=== PATIENT | male | born 1975 | race Caucasian/White ===

== ENCOUNTER → 2018-12-04 | Day surgery (SDC) | payer BC ==
[~2018-12-04] MED LIST: Dexamethasone 20 MG/5 ML VIAL ONE; Lidocaine 1% PF 5 ML VIAL ONE; Ondansetron PF 4 MG/2 ML Vial ONE; PROPOFOL 200 MG/20 ML VIAL ONE; Succinylcholine Chloride 20 MG/ML 10 ml SYRINGE FS ONE
--- NOTE | 2018-12-05 01:55 | OP ---
DATE OF PROCEDURE: 12/04/2018 ENGRAVED ROLLER INSPECTOR SURGEON: None. PROCEDURE PERFORMED: Esophagogastroduodenoscopy with foreign body removal and esophageal biopsies. INDICATIONS: 1. Esophageal foreign body. 2. Chronic dysphagia. MEDICATIONS: See anesthesia record. FINDINGS: After discussion of the risks, benefits, and alternatives of the procedure, informed consent was obtained and witnessed. Pre-endoscopic cardiopulmonary examination was satisfactory. Time-out was performed before sedation was achieved. Sedation was achieved with Anesthesia assistance in the endoscopy unit. The patient was endotracheally intubated for airway protection. He was placed in the left lateral decubitus position. A Pentax adult upper endoscope was placed into the oropharynx and passed through the cricopharyngeus under direct visualization. The esophageal mucosa had an appearance of diffuse edema, friability, longitudinal furrows and concentric rings, all highly suspicious for eosinophilic esophagitis. In the distal esophagus, at 30 cm from the incisors, there was a large food bolus impaction. This appeared to be chicken. The food bolus did not proceed distally with air insufflation. Therefore, I used a Short Net. Thankfully, the large chunk of chicken was easily removed in 2 large pieces with the Short Net. The esophagus was then reintubated for inspection. There was severe maceration in the distal esophagus secondary to recent foreign body impaction. There was no discrete stricture visualized, but there was a lot of diffuse edema in the area. I obtained biopsies from the midesophagus to evaluate for possible eosinophilic esophagitis. I did not perform any esophageal dilation. The endoscope was passed beyond the GE junction, which was at 39 cm from the incisors, and into the stomach. There was some food matter within the gastric fundus obscuring view of a small portion of the fundus, but otherwise the entire gastric mucosa visualized appeared normal. The endoscope was passed through the pylorus and into the first and second portions of the duodenum, which also appeared normal. The upper endoscope was completely withdrawn and the patient allowed to recover. The patient tolerated the procedure well. There were no immediate postprocedure complications. IMPRESSION: 1. Food bolus impaction (chicken) in the distal esophagus, completely removed with Short Net. 2. Severe maceration in the distal esophagus, secondary to recent food bolus impaction. 3. Diffuse esophageal edema, friability, longitudinal furrows and concentric rings, all highly suspicious for eosinophilic esophagitis. Mid esophageal biopsies obtained. RECOMMENDATIONS: 1. Twice daily oral proton pump inhibitor. 2. Liquid diet today and tomorrow, then he can slowly advance as tolerated. 3. Chew food thoroughly. 4. Follow up pathology on the esophageal biopsies. 5. Follow up in the GI Clinic in the next 3 to 4 weeks. Depending on how the patient responds to medical therapy, may consider repeat EGD. Note, the patient is also going to need surveillance colonoscopy, due to prior history of adenomatous colon polyp removed on 2008 colonoscopy. Job ID: [id number]
== END ==
LOC: SDC/OP 19:00
PROVIDERS: ATTEND Internal Medicine
PROC: 0DC58ZZ Extirpation of Matter from Esophagus, Via Natural or Artificial Opening Endoscopic (ICD-10-PCS; principal; 2018-12-04)
PROC: 0DB58ZX Excision of Esophagus, Via Natural or Artificial Opening Endoscopic, Diagnostic (ICD-10-PCS; principal; 2018-12-04)
DX: T18.128A Food in esophagus causing other injury, initial encounter (principal); K20.0 Eosinophilic esophagitis; R13.10 Dysphagia, unspecified; Z79.899 Other long term (current) drug therapy; Z88.2 Allergy status to sulfonamides
CPT/HCPCS: 88305; 88312; 88313; J1100; J2001; J2405; J2704; J3010

== ENCOUNTER 2019-02-08 10:57 | Day surgery (SDC) | payer BC, OTHER ==
[2019-02-05 15:36] VITALS: BMI 45.9
[2019-02-08] MEDS ORDERED: PROPOFOL 200 MG/20 ML VIAL ONE (12:36)
--- NOTE | 2019-02-08 17:37 | OP ---
DATE OF PROCEDURE: 02/08/2019 FAMILY LITERACY COORDINATOR SURGEON: None. PROCEDURES PERFORMED: 1. Esophagogastroduodenoscopy with esophageal dilation over guidewire. 2. Colonoscopy with snare polypectomy. INDICATIONS FOR PROCEDURE: 1. Eosinophilic esophagitis. 2. Personal history of colon polyps. The patient had 2 adenomas removed from the cecum 10 years ago in 2008, at the age of 33. MEDICATIONS: See Anesthesia record. FINDINGS: After discussion of the risks, benefits, and alternatives of the procedure, informed consent was obtained and witnessed. Pre-endoscopic cardiopulmonary examination was satisfactory. Time-out was performed before sedation was achieved. Sedation was achieved with Anesthesia assistance in the endoscopy unit. A Pentax adult upper endoscope was placed into the oropharynx and passed through the cricopharyngeus under direct visualization. The esophageal mucosa had a characteristic appearance of eosinophilic esophagitis. There was only minimal edema. There are concentric rings and narrow caliber with a bit of fibrotic changes at the GE junction, but really no evidence of active inflammation. The endoscope was advanced into the stomach. Forward and retroflexed views of the entire gastric mucosa were obtained. The gastric mucosa appeared normal. The endoscope was advanced through the pylorus and into the first and second portions of the duodenum, which appeared normal. At this point, a Savary guidewire was passed down the accessory port with a spring-loaded tip in the gastric antrum, and the endoscope was removed leaving the guidewire in place. I performed a dilation with a 16-mm Savary dilator. The dilator and wire were completely removed, and the endoscope was placed back into the esophagus for re-examination. This showed no change. At this point, I decided to perform one more dilation. I passed the guidewire back into the stomach, removed the endoscope, and passed a 17 mm Savary dilator with mild resistance. The dilator and guidewire were completely removed. Reexamination of the esophagus did demonstrate some mild mucosal disruption at the GE junction. The upper endoscope was then completely withdrawn, and the patient was repositioned. Digital rectal exam was performed, which was unremarkable. A Pentax adult colonoscope was inserted into the anus and passed forward to the cecum in the usual fashion. The cecal base was identified by the appendiceal orifice as well as the ileocecal valve. The terminal ileum was not intubated. The colonoscope was slowly withdrawn in a gradual and circumferential manner with careful examination of the entire colonic mucosa. The quality of the prep was good. In the ascending colon, there was a sessile polyp measuring 1 cm in diameter. This was completely removed with hot snare and retrieved for pathology. In the transverse colon, there were 2 tiny polyps measuring 1 to 2 mm in diameter. These were completely removed with cold snare and retrieved for pathology. In the sigmoid colon, there was a sessile polyp measuring 5 mm in diameter. This was completely removed with hot snare and retrieved for pathology. The remainder of the colonic mucosa appeared normal throughout. Retroflexion in the rectum appeared normal. The colonoscope was completely withdrawn, and the patient allowed to recover. The patient tolerated the procedure well. There were no immediate postprocedure complications. IMPRESSION: 1. Eosinophilic esophagitis. Esophagus dilated 17 mm, with mild mucosal disruption at the GE junction. 2. Otherwise normal esophagogastroduodenoscopy. 3. A 1-cm ascending colon polyp, completely removed with hot snare and retrieved for pathology. 4. Two tiny transverse colon polyps, both completely removed with cold snare and retrieved for pathology. 5. A 5-mm sigmoid colon polyp, completely removed with hot snare and retrieved for pathology. 6. Otherwise normal colonoscopy to the cecum. RECOMMENDATIONS: 1. Follow up pathology on the colon polyps. Repeat colonoscopy based on pathology results. 2. Continue daily proton pump inhibitor, back off to once daily dosing. 3. Follow up in the GI clinic as needed. Job ID: [id number]
== END 2019-02-08 14:30 | disposition home or self-care (01) ==
LOC: SDC 10:57
PROVIDERS: ATTEND Internal Medicine
PROC: 0D758ZZ Dilation of Esophagus, Via Natural or Artificial Opening Endoscopic (ICD-10-PCS; principal; 2019-02-08)
PROC: 0DBN8ZZ Excision of Sigmoid Colon, Via Natural or Artificial Opening Endoscopic (ICD-10-PCS; principal; 2019-02-08)
PROC: 0DBL8ZZ Excision of Transverse Colon, Via Natural or Artificial Opening Endoscopic (ICD-10-PCS; principal; 2019-02-08)
PROC: 0DBK8ZZ Excision of Ascending Colon, Via Natural or Artificial Opening Endoscopic (ICD-10-PCS; principal; 2019-02-08)
DX: Z12.11 Encounter for screening for malignant neoplasm of colon (principal); K63.5 Polyp of colon; K20.0 Eosinophilic esophagitis; E66.9 Obesity, unspecified; Z68.42 Body mass index [BMI] 45.0-49.9, adult; Z86.010 Personal history of colon polyps; Z88.2 Allergy status to sulfonamides
CPT/HCPCS: 88305

== ENCOUNTER 2019-02-23 08:09 | Outpatient (CLI) | payer BC, OTHER ==
--- NOTE | 2019-02-23 11:04 | CT ---
CT CHEST WITHOUT IV CONTRAST: Date: 02/23/19 Axial tomograms obtained through the chest without IV enhancement. INDICATION: Follow-up pulmonary nodule. Comparison made to a CT chest from 04/18/10. That exam revealed a nodule in the posterior lung base, which was pleural based, and was measured at 1.5 cm. FINDINGS: The pleural based nodule in the posterior left lung base is again seen. It again measures 1.5 cm. On today's exam, it shows evidence of central calcification indicating a benign granuloma. Lung camacho a re otherwise clear. The mediastinum is unremarkable. There are calcified mediastinal and left hilar l ymph nodes. No adenopathy. Images through upper abdomen unremarkable. IMPRESSION: The pleural based nodule in the posterior left lung base is again seen. There is central calcificatio n within this nodule today indicating benign granuloma. POS: [facility]
== END 2019-02-23 08:10 | disposition home or self-care (01) ==
LOC: BICCT 08:09
PROVIDERS: ATTEND Family Medicine
DX: R91.1 Solitary pulmonary nodule (principal)
CPT/HCPCS: 71250

== ENCOUNTER 2019-12-24 17:30 | Outpatient (CLI) | payer BC, OTHER | END 2019-12-24 17:31 | disposition home or self-care (01) | LOC: SLEEPLAB 17:30 | PROVIDERS: ATTEND Otolaryngology Plastic Surgery within the Head & Neck | DX: G47.33 Obstructive sleep apnea (adult) (pediatric) (principal); R53.83 Other fatigue; E66.9 Obesity, unspecified; R06.83 Snoring | CPT/HCPCS: 95801 ==

== ENCOUNTER 2024-03-29 06:29 | Day surgery (SDC) | payer BC ==
[2024-03-29] MEDS ORDERED: EPINEPHrine 1 MG/ML VIAL ONE (06:51)
[2024-03-29] MEDS ORDERED: Bupivacaine 0.25% HCL 30 ML VIAL ONE (06:52)
[2024-03-29] MEDS ORDERED: Dexmedetomidine 200 MCG/2 ML VIAL ONE (07:02)
[2024-03-29] MEDS ORDERED: HYDROmorphone 0.5 MG/0.5 ML SYRINGE ONE ×2 (07:02→07:28)
[2024-03-29] MEDS ORDERED: SUGAMMADEX SODIUM 200 MG/2 ML VIAL ONE (07:02)
[2024-03-29] MEDS ORDERED: Lidocaine 2% PF 5 ML VIAL ONE (07:08)
[2024-03-29] MEDS ORDERED: Rocuronium Bromide 10 MG/ML (10ML VIAL) ONE (07:08)
[2024-03-29] MEDS ORDERED: Scopolamine 1 mg/72 hour Patch ONE (07:09)
[2024-03-29] MEDS ORDERED: PROPOFOL 20 ML ONE (07:09)
[2024-03-29] MEDS ORDERED: Ondansetron PF 4 MG/2 ML Vial ONE (07:09)
[2024-03-29] MEDS ORDERED: fentaNYL 50 mcg/mL 1 mL Vial ONE ×2 (07:09→09:18)
[2024-03-29] MEDS ORDERED: Dexamethasone 20 MG/5 ML VIAL ONE (07:09)
[2024-03-29] MEDS ORDERED: Sodium Chloride 0.9% 100 ML ONE (07:10)
[2024-03-29] MEDS ORDERED: cefOXitin 2 GM VIAL ONE (07:10)
[2024-03-29] MEDS ORDERED: Enoxaparin 40 MG (0.4 mL) SYRINGE ONE (07:10)
[2024-03-29] MEDS ORDERED: Ipratropium/Albuterol 3 ML NEB NEB PRN (07:14)
[2024-03-29] MEDS ORDERED: hydrALAZINE 20 MG/ML VIAL SLOW IVP PRN (07:14)
[2024-03-29] MEDS ORDERED: Dextrose 50% Abboject 50 ML SYRINGE SLOW IVP PRN (07:14)
[2024-03-29] MEDS ORDERED: Ondansetron PF 4 MG/2 ML Vial IVP PRN (07:14)
[2024-03-29] MEDS ORDERED: traMADol HCl 50 MG TAB PO PRN (07:14)
[2024-03-29] MEDS ORDERED: diphenhydrAMINE 50 MG/ML VIAL IVP PRN (07:14)
[2024-03-29] MEDS ORDERED: oxyCODONE 5 MG TAB PO PRN (07:14)
[2024-03-29] MEDS ORDERED: Glucagon 1 MG/ML KIT IM PRN (07:14)
[2024-03-29] MEDS ORDERED: Dextrose 5% in Water 1,000 ML IV PRN (07:14)
[2024-03-29] MEDS ORDERED: Promethazine HCl 25 MG/ML VIAL IM PRN ×2 (07:14→09:21)
[2024-03-29] MEDS ORDERED: Ketorolac Tromethamine 30 MG (1 mL) VIAL ONE (09:20)
[2024-03-29] MEDS ORDERED: HYDROmorphone 2 MG/ML VIAL SLOW IVP PRN (09:21)
[2024-03-29] MEDS ORDERED: Ondansetron HCl/PF 4 MG/2 ML Vial IVP PRN (09:21)
[2024-03-29] MEDS: Enoxaparin 40 MG (0.4 mL) SYRINGE SC SCH (10:45)
[2024-03-29] MEDS: Pantoprazole 40 MG VIAL IVP SCH (10:46)
[2024-03-29] MEDS: DULoxetine 60 MG CAP PO SCH (11:30)
[2024-03-29] MEDS: Ketorolac Tromethamine 30 MG (1 mL) VIAL IVP SCH (12:03)
[2024-03-29] MEDS: D5 1/2 NS w/20 mEq KCL 1,000 ML IV SCH (12:03)
[2024-03-29 13:20] VITALS: BMI 46.3
[2024-03-29] MEDS: Acetaminophen 650 MG/20.3 ML UDCUP PO SCH (14:27)
[2024-03-30 11:07] VITALS: BP 161/84; TEMP 98.1
== END 2024-03-30 12:19 | disposition home or self-care (01) ==
LOC: SDC 06:29 → SURG A 10:39 → EDSTATUS 12:00 → SDC 03-30 12:19
PROVIDERS: ATTEND Surgery
PROC: 0DT60ZZ Resection of Stomach, Open Approach (ICD-10-PCS; principal; 2024-03-30)
DX: E66.01 Morbid (severe) obesity due to excess calories (principal); E11.69 Type 2 diabetes mellitus with other specified complication; G47.33 Obstructive sleep apnea (adult) (pediatric); E78.5 Hyperlipidemia, unspecified; K21.9 Gastro-esophageal reflux disease without esophagitis; K76.0 Fatty (change of) liver, not elsewhere classified; J45.909 Unspecified asthma, uncomplicated; F41.9 Anxiety disorder, unspecified; K58.9 Irritable bowel syndrome, unspecified; G43.909 Migraine, unspecified, not intractable, without status migrainosus; F33.9 Major depressive disorder, recurrent, unspecified; E11.65 Type 2 diabetes mellitus with hyperglycemia; Z88.2 Allergy status to sulfonamides; Z79.899 Other long term (current) drug therapy; Z87.891 Personal history of nicotine dependence; Z68.42 Body mass index [BMI] 45.0-49.9, adult
CPT/HCPCS: 88307; J0171; J0665; J0694; J1100; J1170; J1650; J1885; J2001; J2405; J2470; J2704; J3010; J3480